=== PATIENT | male | born 1985 | race Caucasian/White ===

== ENCOUNTER 2022-08-24 12:29 | Emergency (ER) | payer OTHER, SELFPAY ==
[2022-08-24 12:32] VITALS: BP 122/77; PULSE 60; RESP 18; TEMP 36.1; O2SAT 100
[2022-08-24] MEDS: ONDANSETRON INJ 4 MG/2 ML VIAL IV PUSH (13:24)
[2022-08-24] MEDS: SODIUM CHLORIDE 0.9% IV 1,000 ML 999 ML IV CONT (13:24)
[2022-08-24] MEDS: MECLIZINE HCL 25 MG TABLET PO (13:24)
[2022-08-24 13:56] VITALS: BP 121/72; PULSE 61
--- NOTE | 2022-08-24 13:57 | ED.DIZZY ---
HPI - Dizziness General Chief Complaint: Dizziness Stated Complaint: dizziness Time Seen by Provider: 08/24/22 12:39 Source: patient Mode of arrival: ambulatory Limitations: no limitations History of Present Illness HPI Narrative: Patient is a 37-year-old male who presents the ED with report of dizziness. Patient reports he woke up with dizziness this morning, described as though the room is spinning. Symptoms are worse with sitting upright, turning his head to the right, attempting to ambulate. Feels better when laying still with his eyes closed. Patient does feel nauseous associated with the dizziness, but denies vomiting. Denies abdominal pain, headache, vision changes, weakness of arm or leg, confusion, slurred speech, facial droop, numbness, CP, SOB. He does report having some left sided neck and ear pain, which he attributed to sleeping wrong. Denies any tinnitus or ear drainage. Related Data Allergies Allergy/AdvReac Type Severity Reaction Status Date / Time Iodinated Contrast Media Allergy Mild Verified 05/20/11 15:36 Review of Systems Review of Systems: CONSTITUTIONAL: Denies fever, chills, or sweats. EYES: Denies visual changes. ENT: See HPI. CARDIOVASCULAR: Denies chest pain, palpitations, or edema. RESPIRATORY: Denies cough or dyspnea. GASTROINTESTINAL: See HPI. MUSCULOSKELETAL: See HPI. NEUROLOGIC: See HPI. All systems reviewed & are unremarkable except as noted in HPI and below PMFSH Past Medical History Medical History No pertinent past medical history Surgical History Surgical History No pertinent past surgical history Social History Social History Smoking status: Never smoker Exam Narrative: GENERAL: Well appearing, well-nourished, non-toxic, in no acute distress. HEAD: Normocephalic, atraumatic. EYES: PERRL/EOMI, conjunctivae clear bilaterally. Bilateral nystagmus, worse looking to the right, fatiguable. EARS: TMS clear, with good light reflex. No erythema or bulging. No cerumen impaction. THROAT: Pharynx clear, no exudate. MMs moist. NECK: Supple. No adenopathy, no masses. No midline spinal tenderness. RESPIRATORY: Airway patent, respirations nonlabored. Clear to auscultation bilaterally, no rales, rhonchi, wheezing. CARDIOVASCULAR: Regular rate and rhythm without murmurs, rubs, or gallops. Radial pulses 2+ and equal bilaterally. MUSCULOSKELETAL: Moves all extremities. Strength/ROM intact without gross deformities or TTP. No edema. SKIN: Warm, dry, normal color. No rashes. NEURO: A&O X3. Speech clear. Follows commands. CN II-XII intact. Sensation grossly intact. Steady gait. No ataxic movements. Strength 5/5 in upper and lower extremities bilaterally. No pronator drift. Equal boat builder strength bilaterally. PSYCHIATRIC: Appropriate mood and affect. Normal interaction. Course Vital Signs Vital signs: Vital Signs Temperature 97.0 F L 08/24/22 12:32 Pulse Rate 60 08/24/22 12:32 Respiratory Rate 18 08/24/22 12:32 Blood Pressure 122/77 08/24/22 12:32 Pulse Oximetry 100 08/24/22 12:32 Oxygen Delivery Room Air 08/24/22 12:32 Temperature 97.0 F L 08/24/22 12:32 Pulse Rate 65 08/24/22 15:16 Respiratory Rate 16 08/24/22 15:16 Blood Pressure 121/74 08/24/22 15:16 Pulse Oximetry 100 08/24/22 15:16 Oxygen Delivery Room Air 08/24/22 12:32 MDM - Dizziness MDM Narrative Medical decision making narrative: Patient presented to ED with room spinning dizziness that began this morning, nausea associated with dizziness. Mild left-sided ear pain. Vitals stable upon arrival. No orthostatic hypotension. Exam unremarkable. No signs of ear infection or cerumen impaction. Patient's vertigo is felt to be likely peripheral in origin. There is no diplopia, dysarthria, or dysphagia. No focal weakness.
[2022-08-24 14:00] VITALS: BP 123/81; PULSE 55
[2022-08-24 14:01] VITALS: BP 129/76; PULSE 70
[2022-08-24 15:16] VITALS: BP 121/74; PULSE 65; RESP 16; O2SAT 100
== END 2022-08-24 15:17 | disposition home or self-care (01) ==
PROVIDERS: Emergency Provider Physician Assistant; PCP Internal Medicine
DX: H81.11 Benign paroxysmal vertigo, right ear (principal)
CPT/HCPCS: 96361; 96374; 99284; A9270; J2405; J7030